=== PATIENT | male | born 1970 | race Caucasian/White ===

== ENCOUNTER 2020-02-29 07:49 | Day surgery (SDC) | payer SELFPAY ==
[2020-01-26 09:35] VITALS: BMI 36.5
[2020-02-29] VITALS (7 sets, daily range): BP systolic 86–137; BP diastolic 53–94; PULSE 71–80; RESP 16; TEMP 36.7–36.9; O2SAT 93–96; BMI 37.1
--- NOTE | 2020-02-29 08:20 | HP_ITS ---
Intake Vital Signs 01/26/20 Height 5 ft 8 in 01/26/20 Weight: 240 lb 01/26/20 BMI 36.5 01/26/20 BP 131/84 H 01/26/20 Blood Pressure Location Rt brachial 01/26/20 Position Sitting 01/26/20 Respiration 16 01/26/20 Pulse 76 01/26/20 Pulse Source Monitor 01/26/20 Temp 98.2 F 01/26/20 Temp Source Temporal 01/26/20 Pulse Oximetry (%) 98 01/26/20 Oxygen Delivery Method room air Intake Visit Reasons: CSCOPE/ FAMILY HX, HEMORRHOIDS Safemaker Required: No Is patient in pain?: No Allergies No Known Allergies Allergy (Verified 01/26/20 09:36) Medications metoprolol tartrate 50 mg tablet 50 mg PO BID 01/26/20 [History Confirmed 01/26/20] PFSH Medical History Hemorrhoids (Acute) Acid reflux (Acute) Hypertension (Chronic) Surgical History History of esophagogastroduodenoscopy (EGD) (Acute) History of ankle joint replacement (Acute) Family History Father Lung cancer Sister Diabetes Social History (Updated 01/26/20 @ 09:[address] Paulo Stack MD) Smoking Status: Former smoker alcohol intake: never substance use type: does not use caffeine: Yes what type of physical activity do you participate in: none frequency: does not exercise HPI HPI HPI: SCOT VARELA, is a 50 M who presents to the office today for HPI HPI Surgical H&P: Yes HPI: SCOT VARELA, is a 50 M who presents to the office today for Colonoscopy. The patient has never had a screening colonoscopy. He is 50 years old and he has no abdominal pain or blood in his stool. The patient reports no family history of colon cancer. Patient is also complaining of hemorrhoids which bother him with every bowel movement. ROS General General: No weight change or fatigue Cardio Cardiovascular: No murmur, pacemaker, heart disease, atrial fibrillation, high blood pressure, heart attack, heart stent, palpitations, shortness of breat with exertion or chest pain Psych Psychiatric: No depression or anxiety Resp Respiratory: No shortness of breath, No sleep apnea, No cough, No COPD, No asthma, No emphysema, No wheezing Gastro Gastrointestinal: No abdominal pain, No nausea or vomiting, No diarrhea, No constipation, No blood in stool, No acid reflux, No hemorrhoids, No ulcers, No gallbladder problem, No black,tarry stools Charles Hematologic: No blood thinners Exam Const General: cooperative Orientation: alert, oriented x3 Resp Effort & Inspection: normal respiratory effort Auscultation: clear to auscultation bilaterally Cardio Rate: regular rate Rhythm: regular rhythm Heart Sounds: no murmurs GI Inspection: non-distended Palpation: soft, nontender Assessment & Plan Problems 1. Hemorrhoids, unspecified hemorrhoid type K64.9 2. Screening for colon cancer Z12.11 Plan The patient requires screening colonoscopy. I will evaluate the hemorrhoids at the time of colonoscopy to decide if he would like to have a hemorrhoidectomy and to see if he has internal hemorrhoids to manage his external hemorrhoids. I explained endoscopy in detail to the patient. I explained the risks including but not limited to stroke or heart attack with anesthesia, perforation of the GI tract, bleeding, infection. I explained that any of these could necessitate further emergency surgery. The patient understands and all questions were answered sufficiently. The patient wishes to proceed with procedure. Paulo Stack MD Pager: [facility] [address] [place] [address], [address] [place] [address] Office: Orders Orders: Colonoscopy Today Z12.11 Coding Level of Care Code Off vis,new,level 3 Diagnoses Hemorrhoids, unspecified hemorrhoid type K64.9 ??Hemorrhoid type: unspecified Screening for colon cancer Z12.11 I have re-examined the patient. There are no clinical changes since date of exam.
--- NOTE | 2020-02-29 09:00 | COLBX_PTH ---
PATIENT: SCOT VARELA LOC: EN U#:[id number] AGE/SX: 50/M ROOM: RE02/29/[address]: Dr. Paulo Stack MD : 1970 BED: DIS: 02/29/2020 SPEC #: [id number] RECD: 02/29/20 12:17 STATUS: TANVIR HEATHER #: [id number] MELIDA: 02/29/20 09:[address]: Paulo Stack DEPT: SURGICAL PATHOLOGY RECD BY: Camelia Barth ENTERED: 02/29/20 13:03 SP TYPE: COLON BX OTHR DR: Dr. Fahad Noble, DO Tissues: Descending colon Procedures: Surgery Specimen Level IV HEADER OPERATION: Colonoscopy (MAC) PRE-OP DIAGNOSIS: Hemorrhoids, screening for colon cancer TISSUE SUBMITTED: Descending polyp MICROSCOPIC DIAGNOSIS Descending colon polyp, biopsy: Tubular adenoma. SJ:jojo 03/01/20 MICROSCOPIC DESCRIPTION Slides are reviewed. GROSS DESCRIPTION Received in fixative is one container labeled with the patient's name and designated descending polyp. The specimen consists of one irregular fragment of light duckworth soft tissue that measures 1 x 0.5 x 0.2 cm. The specimen is totally submitted in one cassette. / AM:jojo 02/29/20 TC:1 CPT: 70872
--- NOTE | 2020-02-29 09:08 | OP.CCLET_ITS ---
02/29/2020 Fahad Noble Re : Colonoscopy procedure for Tyler Calderon Dear Aide This procedure was performed on Saturday, February 29, 2020. My impressions and recommendations are as follows: Impressions : - One small polyp in the descending colon, removed with a hot snare. Resected and retrieved. - Non-bleeding external and internal hemorrhoids. - The examination was otherwise normal on direct and retroflexion views. Recommendations : - Discharge patient to home. - Resume previous diet. - Continue present medications. - Await pathology results. - Repeat colonoscopy in 5 years for surveillance. My findings are described in the full procedure note, which is enclosed. If I can be of further assistance, please feel free to contact me at Doctor phone number(s): , Work: . Sincerely, Paulo Stack MD 02/29/2020 9:07:58 AM This report has been signed electronically.
--- NOTE | 2020-02-29 09:08 | OP.COLON_ITS ---
Patient Name: Tyler Calderon Procedure Date: 02/29/2020 8:42 AM Date of : 1970 Age: 50 Procedure: Colonoscopy Indications: Screening for colorectal malignant neoplasm Providers: Paulo Stack MD Referring MD: Fahad Noble Medicines: Monitored Anesthesia Care Patient Profile: This is a 50 year old male. Refer to note in patient chart for documentation of history and physical. Last Colonoscopy: none. The patient's first colonoscopy is today. Complications: No immediate complications. Procedure: Pre-Anesthesia Assessment: - Prior to the procedure, a History and Physical was performed, and patient medications and allergies were reviewed. The patient's tolerance of previous anesthesia was also reviewed. The risks and benefits of the procedure and the sedation options and risks were discussed with the patient. All questions were answered, and informed consent was obtained. Prior Anticoagulants: The patient has taken no previous anticoagulant or antiplatelet agents. After reviewing the risks and benefits, the patient was deemed in satisfactory condition to undergo the procedure. After I obtained informed consent, the scope was passed under direct vision. Throughout the procedure, the patient's blood pressure, pulse, and oxygen saturations were monitored continuously. The Colonoscope was introduced through the anus and advanced to the cecum, identified by appendiceal orifice and ileocecal valve. The colonoscopy was performed without difficulty. The patient tolerated the procedure well. The quality of the bowel preparation was good. Scope In: 8:48:00 AM Scope Withdrawal Time 0 hours 6 minutes 52 seconds Scope Out: 8:57:34 AM Total Procedure Duration Time 0 hours 9 minutes 34 seconds Findings: A small polyp was found in the descending colon. The polyp was removed with a hot snare. Resection and retrieval were complete. Non-bleeding external and internal hemorrhoids were found during retroflexion. The exam was otherwise without abnormality on direct and retroflexion views. Impression: - One small polyp in the descending colon, removed with a hot snare. Resected and retrieved. - Non-bleeding external and internal hemorrhoids. - The examination was otherwise normal on direct and retroflexion views. Recommendation: - Discharge patient to home. - Resume previous diet. - Continue present medications. - Await pathology results. - Repeat colonoscopy in 5 years for surveillance. Procedure Code(s): --- Professional --- 66483, Colonoscopy, flexible; with removal of tumor(s), polyp(s), or other lesion(s) by snare technique Diagnosis Code(s): --- Professional --- Z12.11, Encounter for screening for malignant neoplasm of colon D12.4, Benign neoplasm of descending colon K64.8, Other hemorrhoids CPT copyright 2017 [employer]. All rights reserved. The codes documented in this report are preliminary and upon middle school tutor review may be revised to meet current compliance requirements. Paulo Stack MD 02/29/2020 9:07:58 AM This report has been signed electronically. Number of Addenda: 0 Note Initiated On: 02/29/2020 8:42 AM
== END 2020-02-29 09:50 | disposition home or self-care (01) ==
LOC: EN 07:52 → AC 07:53
PROVIDERS: PCP Family Medicine; Referring Provider Family Medicine; Visit Provider Surgery
PROC: 0DJD8ZZ Inspection of Lower Intestinal Tract, Via Natural or Artificial Opening Endoscopic (ICD-10-PCS; CPT 45378; principal; 2020-02-29 08:55)
DX: Z12.11 Encounter for screening for malignant neoplasm of colon (principal); D12.4 Benign neoplasm of descending colon; K64.4 Residual hemorrhoidal skin tags; K64.8 Other hemorrhoids; I10 Essential (primary) hypertension; K21.9 Gastro-esophageal reflux disease without esophagitis; Z87.891 Personal history of nicotine dependence; Z79.899 Other long term (current) drug therapy; Z20.828 Contact with and (suspected) exposure to other viral communicable diseases
CPT/HCPCS: 45385; 87426; 88305; C9803; J7120; J2405

== ENCOUNTER → 2025-02-09 | Outpatient (CLI) | payer SELFPAY ==
--- OUTSIDE RECORDS SUMMARY | 2025-02-09 18:40 | XMS RPT_ITS | CCD ---
Author Organization [facility] Inform ion Partnership [facility] Care Team Providers Care Doorperson Or Luggage Porter Name Role Phone Watson Patel Attending Unavailable Fahad Noble Primary Care Unavailable Results Test Name Value Interpretation Reference Range Facil ity Ankle min 3 Viewson 01-13-20 Ankle min 3 Views [facility] [address] [place] [address] Ankle min 3 Views MR#: [id number] Acct: [id number] Name: SCOT VARELA Rep #: [id number] : 1970 M 53 From: Rylan Lau MD PCP: Dr. Fahad Noble MD Status: DEP AMB Study: Ankle min 3 Views Date of Exam: 01/13/24 Exam# [id number] Ordering Dr: Radha Xavier DPIsadora [id number] STUDY: X-RAY - LEFT ANKLE REASON FOR EXAM: Male, 53 years old. PAIN -- STANDING TECHNIQUE: 3 views of the left ankle. COMPARISON: None. FINDINGS: There are screws and anchors in the lateral aspects of the talus and calcaneus. 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 This could be the sequelae of repetitive injury. Intact visualized distal tibia and fibula. Intact medial and lateral malleoli. Intact visualized talus and calcaneus. The visualized subtalar, talonavicular, calcaneocuboid and tarsal articulations are normal. There is no demonstrated fracture. The soft tissue structures are unremarkable. RAD/Ankle min 3 Views IMPRESSION: Tibiotalar arthrosis. Cluster of osseous fragmentation projecting over the anterior tibiotalar joint recess, probably the sequelae of repetitive injury. Electronically Signed: Rylan Lau MD at 13:28 EDT , CC: DPM Dr. Radha Xavier; Dr. Fahad Noble MD Manager Architecture: Signed Normal [facility] Encounters Encounter Date Encounter Type Care Provider Facility Start: 01-13-2024 End: 01-13-2024 ambulatory Watson Amanda Facility:[facility] Payers Date Payer Category Payer Self-pay Unknown [id number] Summary Purpose Family History No Family History Records Found Advance Directives No Advanced Directives Records Found Additional Source Comments (unrecognized sect ion and content) No Status Records Found INFORMATION SOURCE (unrecogn ized section and content) DATE CREATED AUTHOR 01/14/2024 [facility] FOR RECORDS PERTAINING TO PATIENTS WHO ARE OR HAVE BEEN ENROLLED IN A CHEMICAL DEPENDENCY/SUBSTANCEABUSE PROGRAM, SOME INFORMATION MAY BE OMITTED. This clinical summary was aggregated from multiple sources. Caution should be exercised in using it in the provision of clinical care. This summary normalizes information from multiple sources, and as a consequence, information in this document may materially change the coding, format and clinical context of patient data. In addition, data may be omitted in some cases. CLINICAL DECISIONS SHOULD BE BASED ON THE PRIMARY CLINICAL RECORDS. [employer] provides no warranty or guarantee of the accuracy or completeness of information in this document.
--- NOTE | 2025-02-09 18:43 | CT_ITS ---
PROCEDURE: ORB SELLA POST FOSSA EAR W/O 02/09/2025 REASON FOR EXAM: MIXED CONDUCTIVE AND SENSORINEURAL HEARING IAC TECHNIQUE: Procedure Code: CTORB Modality: CT Procedure: ORB SELLA POST FOSSA EAR W/O CONTRAST: None One or more dose reduction techniques were used (e.g., Automated exposure control, adjustment of the mA and/or kV according to patient size, use of iterative reconstruction technique). RADIATION DOSE SUMMARY: CTDlvol: 67.58 mGy DLP: 688.06 mGycm COMPARISON: None FINDINGS: Globes: Unremarkable Extraocular Muscles: Unremarkable Orbits: Unremarkable Lacrimal Glands: Unremarkable Bones: Unremarkable Other: Visualized paranasal sinuses and intracranial structures: The middle ear cavities are unremarkable. The ossicles are in normal position. Mastoid air cells are clear. The internal auditory canals are unremarkable bilaterally. CT/Orb Sella Post Fossa Ear w/o IMPRESSION: No acute abnormality is seen. Reading Location: [id number]
== END | disposition home or self-care (01) ==
PROVIDERS: PCP Family Medicine
DX: H90.A32 Mixed conductive and sensorineural hearing loss, unilateral, left ear with restricted hearing on the contralateral side (principal)
CPT/HCPCS: 70480